=== PATIENT | male | born 1990 | race Caucasian/White ===

== ENCOUNTER 2017-10-24 03:59 | Emergency (ER) | payer MEDICAID ==
[2017-10-24 05:14] LABS: % BASOPHILS 0.4 % (0.0-2.0); % EOSINOPHILS 2.3 % (0.0-5.0); % LYMPHOCYTES 29.8 % (20.0-50.0); % MONOCYTES 9.2 % (2.0-10.0); % NEUTROPHILS 58.3 % (40.0-80.0); EOSINOPHILE ABSOLUTE 0.2 Th/cmm (0.1-0.4); HEMATOCRIT 45.3 % (41.0-60); HEMOGLOBIN 14.9 gm/dL (12-16); MEAN CELL VOLUME 90.9 fl (80-99); MEAN CORPUSCULAR HEMOGLOBIN 29.8 pg (26.0-30.0); MEAN CORPUSCULAR HGB CONC 32.8 pg (28.0-36.0); MEAN PLATELET VOLUME 7.4 fl; MONOCYTE ABSOLUTE 0.9 Th/cmm (0.3-1.0); NEUTROPHILE ABSOLUTE 5.8 Th/cmm (1.8-8.0); PLATELET COUNT 362 Th/cmm (150-400); RED BLOOD COUNT 4.99 Mil/cmm (4.30-5.70); RED CELL DISTRIBUTION WIDTH 13.1 % (11.5-20.0); WHITE BLOOD COUNT 9.9 Th/cmm (4.8-10.8)
[2017-10-24 05:44] LABS: ALB/GLOB RATIO 1.8 (1.0-1.8); ALBUMIN 4.5 gm/dL (4.2-5.5); ALKALINE PHOSPHATASE 62 U/L (34-104); AMYLASE SERUM 34 U/L (29-103); ANION GAP 5.9 (7.0-16.0); BILIRUBIN,TOTAL 0.3 mg/dL (0.3-1.0); BUN - UREA NITROGEN 16 mg/dL (7-25); CALCIUM SERUM 10.1 mg/dL (8.6-10.3); CARBON DIOXIDE 31.2 mEq/L (21.0-31.0); CHLORIDE 103 mEq/L (98-107); CREATININE - SERUM 0.9 mg/dL (0.7-1.3); GFR AFRICAN-AMERICAN > 60.0 ml/min (>90); GFR NON AFRICAN-AMERICAN > 60.0 ml/min; GLUCOSE 116 mg/dL (70-105); LIPASE 11 U/L (11-82); POTASSIUM SERUM 4.1 mEq/L (3.5-5.1); SGOT 16 U/L (13-39); SGPT/ALT 14 U/L (7-52); SODIUM SERUM 136 mEq/L (136-145)
[2017-10-24 06:10] LABS: URINE MICROSCOPIC INDICATED? YES; URINE SOURCE RANDOM
[2017-10-24 06:12] LABS: URINE BILIRUBIN NEGATIVE (NEGATIVE); URINE BLOOD SMALL (NEGATIVE); URINE GLUCOSE (UA) NEGATIVE (NEGATIVE); URINE KETONE NEGATIVE (NEGATIVE); URINE LEUKOCYTE ESTERASE NEGATIVE (NEGATIVE); URINE NITRATE NEGATIVE (NEGATIVE); URINE PROTEIN NEGATIVE (NEGATIVE); URINE UROBILINOGEN 0.2 E.U./dL (0.2 - 1.0)
[2017-10-24 06:40] LABS: AMPHETAMINE URINE POSITIVE (NEGATIVE)
[2017-10-24 06:41] LABS: BARBITURATES URINE NEGATIVE (NEGATIVE); BENZODIAZEPINES QUAL URINE NEGATIVE (NEGATIVE); CANNABINOID THC POSITIVE (NEGATIVE); COCAINE METABOLITE QUAL URINE NEGATIVE (NEGATIVE); METHADONE URINE NEGATIVE (NEGATIVE); METHAMPHETAMINES QUAL URINE POSITIVE (NEGATIVE); OPIATES (MORPHINE) QUAL. URINE NEGATIVE (NEGATIVE); PHENCYCLIDINE (PCP) URINE NEGATIVE (NEGATIVE); TRICYCLICS (TCA) QUAL. URINE NEGATIVE (NEGATIVE)
[2017-10-24 06:42] LABS: URINE CLARITY HAZY (CLEAR); URINE COLOR YELLOW
[2017-10-24 06:46] LABS: URINE RBC 0-2 /hpf (0-5); URINE WBC 0-2 /hpf (0-5)
[2017-10-24 06:47] LABS: URINE AMORPHOUS SEDIMENT MODERATE URATES (NONE SEEN); URINE BACTERIA FEW /hpf (NONE SEEN); URINE EPITHELIAL CELLS OCCASIONAL /lpf (FEW)
--- NOTE | 2017-10-24 07:00 | ED Physician Chart ---
ED Chief Complaint/HPI - Patient Information Date Seen:: 10/24/17 Time Seen:: 05:00 Chief Complaint:: right flank pain History of Present Illness:: THIS IS A 27 YO MALE WITH A COMPLAINT OF RIGHT FLANK PAIN WITHOUT NAUSEA, VOMITING AND NO FEVER. HE DENIES HAVING RENAL STONES. HE STATES AND GALLBLADDER PROBLEMS. HE STATES THE PAIN IS 6/10 AND NON- RADIATING. HE DENIES HAVING ANY ABDOMINAL SURGERY. HE DENIES USING DRUGS OR SMOKING. Allergies:: Allergies Allergy/AdvReac Type Severity Reaction Status Date / Time No Known Allergies Allergy Verified 10/24/17 04:36 Vitals:: Vital Signs - 8 hr 10/24/17 10/24/17 04:36 06:36 Temp 97.9 F HR 79 65 RR 18 16 BP 108/44 116/74 O2 Sat % 99 98 Historian:: Patient Review:: Nurse's Note Reviewed ED Review of Systems - Review of Systems General/Constitutional: No fever, No chills, No weight loss, No weakness, No diaphoresis, No edema, No loss of appetite Skin: No skin lesions, No rash, No bruising Head: No headache, No light-headedness Eyes: No loss of vision, No pain, No diplopia ENT: No earache, No nasal drainage, No sore throat, No tinnitus Neck: No neck pain, No swelling, No thyromegaly, No stiffness, No mass noted Cardio Vascular: No chest pain, No palpitations, No PND, No orthopnea, No edema Pulmonary: No SOB, No cough, No sputum, No wheezing GI: No nausea, No vomiting, No diarrhea, Pain (RIGHT FLANK PAIN), No melena, No hematochezia, No constipation, No hematemesis G/U: No dysuria, No frequency, No hematuria Musculoskeletal: No bone or joint pain, No back pain, No muscle pain Endocrine: No polyuria, No polydipsia Psychiatric: No prior psych history, No depression, No anxiety, No suicidal ideation Hematopoietic: No bruising, No lymphadenopathy Allergic/Immuno: No urticaria, No angioedema Neurological: No syncope, No focal symptoms, No weakness, No paresthesia, No headache, No seizure, No dizziness, No confusion, No vertigo ED Past Medical History - Past Medical History Obtainable: Yes Family History: None Social History: Smoker, Alcohol, Illicit Drug Use, Single Surgical History: other (TONSILS, RIGHT EAR SURGERY) Family Medical History - Family Member Mother History Unknown: Yes ED Physical Exam - Physical Examination General/Constitutional: Awake, Well-developed, well-nourished, Alert, No distress, GCS 15, Non-toxic appearing, Ambulatory Head: Atraumatic Eyes: Lids, conjuctiva normal, PERRL, EOMI Skin: Nl inspection, No rash, No skin lesions, No ecchymosis, Well hydrated, No lymphadenopathy ENMT: External ears, nose nl, Nasal exam nl, Lips, teeth, gums nl Neck: Nontender, Full ROM w/o pain, No JVD, No nuchal rigidity, No bruit, No mass, No stridor Respiratory: Nl effort/Exclusion, Clear to Auscultation, No Wheeze/Rhonchi/Rales Cardio Vascular: RRR, No murmur, gallop, rubs, NL S1 S2 GI: No tenderness/rebounding/guarding, No organomegaly, No hernia, Normal BS's, Nondistended, No mass/bruits, No McBurney tenderness Other GI comments:: THE ABDOMEN WAS SOFT AND NON-TENDER WITH NORMAL BOWEL SOUNDS. : No CVA tenderness Extremities: No tenderness or effusion, Full ROM, normal strength in all extremities, No edema, Normal digits & nails Neuro/Psych: Alert/oriented, DTR's symmetric, Normal sensory exam, Normal motor strength, Judgement/insight normal, Mood normal, Normal gait, No focal deficits Misc: Normal back, No paraspinal tenderness ED Labs/Radiology/EKG Results - Lab Results Results: Laboratory Tests 10/24/17 10/24/17 10/24/17 04:35 04:35 05:00 WBC 9.9 RBC 4.99 Hgb 14.9 Hct 45.3 MCV 90.9 MCH 29.8 MCHC Differential 32.8 RDW 13.1 Plt Count 362 MPV 7.4 Neutrophils % 58.3 Lymphocytes % 29.8 Monocytes % 9.2 Eosinophils % 2.3 Basophils % 0.4 Sodium Potassium Chloride Carbon Dioxide Anion Gap BUN Creatinine Est GFR ( Amer) Est GFR (Non-Af Amer) BUN/Creatinine Ratio Glucose Calcium Total Bilirubin AST ALT Alkaline Phosphatase Total Protein Albumin Globulin Albumin/Globulin Ratio Amylase Lipase Urine Source RANDOM Urine Color YELLOW Urine Clarity HAZY Urine pH 7.0 Ur Specific [place] 1.020 Urine Protein NEGATIVE Urine Glucose (UA) NEGATIVE Urine Ketones NEGATIVE Urine Blood SMALL H Urine Nitrate NEGATIVE Urine Bilirubin NEGATIVE Urine Urobilinogen 0.2 Ur Leukocyte Esterase NEGATIVE Urine RBC 0-2 H Urine WBC 0-2 Ur Epithelial Cells OCCASIONAL Amorphous Sediment MODERATE URATES Urine Bacteria FEW Urine Opiates Screen NEGATIVE Urine Methadone Screen NEGATIVE Ur Barbiturates Screen NEGATIVE Ur Tricyclics Screen NEGATIVE Ur Phencyclidine Scrn NEGATIVE Amphetamines Screen POSITIVE H U Methamphetamines Scrn POSITIVE H U Benzodiazepines Scrn NEGATIVE U Cocaine Metab Screen NEGATIVE U Cannabinoids Screen POSITIVE H 10/24/17 05:00 WBC RBC Hgb Hct MCV MCH MCHC Differential RDW Plt Count MPV Neutrophils % Lymphocytes % Monocytes % Eosinophils % Basophils % Sodium 136 Potassium 4.1 Chloride 103 Carbon Dioxide 31.2 H Anion Gap 5.9 L BUN 16 Creatinine 0.9 Est GFR ( Amer) > 60.0 Est GFR (Non-Af Amer) > 60.0 BUN/Creatinine Ratio 17.8 Glucose 116 H Calcium 10.1 Total Bilirubin 0.3 AST 16 ALT 14 Alkaline Phosphatase 62 Total Protein 7.0 Albumin 4.5 Globulin 2.5 Albumin/Globulin Ratio 1.8 Amylase 34 Lipase 11 Urine Source Urine Color Urine Clarity Urine pH Ur Specific [place] Urine Protein Urine Glucose (UA) Urine Ketones Urine Blood Urine Nitrate Urine Bilirubin Urine Urobilinogen Ur Leukocyte Esterase Urine RBC Urine WBC Ur Epithelial Cells Amorphous Sediment Urine Bacteria Urine Opiates Screen Urine Methadone Screen Ur Barbiturates Screen Ur Tricyclics Screen Ur Phencyclidine Scrn Amphetamines Screen U Methamphetamines Scrn U Benzodiazepines Scrn U Cocaine Metab Screen U Cannabinoids Screen ED Assessment - Assessment General Assessment: ABDOMINAL PAIN ED Septic Shock - . Is Septic Shock (SBP<90, OR Lactate>4 mmol\L) present?: No - <6hrs of presentation: Vital Signs: Vital Signs - 8 hr 10/24/17 10/24/17 04:36 06:36 Temp 97.9 F HR 79 65 RR 18 16 BP 108/44 116/74 O2 Sat % 99 98 ED Reassessment (Disposition) - Reassessment Reassessment Condition:: Improved - Diagnosis Diagnosis:: RIGHT FLANK PAIN DRUG ABUSE - Aftercare/Follow up Instructions Aftercare/Follow-Up Instructions:: Counseled pt regarding lab results/diagnosis & need follow up, Refer to Discharge Instructions, Counseled pt & family regarding lab results/diagnosis & need follow up - Patient Disposition Discharge/Transfer:: Home Condition at Disposition:: Improved ED Discharge Plan - Patient Disposition Admit/Discharge/Transfer: PT DISCHARGED HOME Condition at Disposition: Improved Instructions: Marijuana Abuse-Brief, Abdominal Pain, [id number], Methamphetamine Abuse, Complications Additional Instructions: STOP TAKING MARIJUANA AND METHAMPHETAMINE DO NOT TAKE ILLICIT DRUGS DRINK PLENTY OF WATER TO KEEP YOURSELF HYDRATED (10-12 GLASSES A DAY)
== END 2017-10-24 06:50 | disposition home or self-care (01) ==
LOC: ER 03:59
DX: F10.10 Alcohol abuse, uncomplicated (principal); F17.200 Nicotine dependence, unspecified, uncomplicated
CPT/HCPCS: 36415-UA; 80053-TC; 80307; 81001-TC; 82150-TC; 83690-TC; 85025-TC; Z7502